=== PATIENT | female | born 1990 | race Caucasian/White ===

== ENCOUNTER 2021-01-23 12:53 | Outpatient (RCR) | payer BC, SELFPAY | END 2021-02-27 23:59 | LOC: IMMUN 12:53 | PROVIDERS: Visit Provider Family Medicine | DX: Z23 Encounter for immunization (principal) | CPT/HCPCS: 0001A; 91300 ==

== ENCOUNTER 2023-05-19 12:50 | Inpatient (IN) | payer BC, SELFPAY ==
[2023-05-19] VITALS (18 sets, daily range): BP systolic 132–157; BP diastolic 62–86; PULSE 59–68; TEMP 35.9–36.8; O2SAT 94–100; BMI 25.4
[2023-05-19] MEDS: 0.9% Saline Lock 10 ML Syringe IV (13:55)
[2023-05-19 14:14] LABS: Absolute Lymphocyte Count 1.45 X10^3/uL (0.83-4.51); Absolute Neutrophil Count 5.1 X10^3/uL (2.0-7.7); Basophil# 0.02 X10^3/uL; Basophil% 0.3 % (0-1); Eosinophil# 0.04 X10^3/uL; Eosinophils% 0.6 % (0-5); Hematocrit 31.6 % (37-47); Lymphocyte # 1.45 X10^3/ul (0.83-4.51); Lymphocyte % 20.5 % (19-41); Mean Corp Hgb Conc 34.8 g/dL (32-36); Mean Corpuscular Hgb 32.7 pg (27.0-32.0); Mean Platelet Vol. 12.6 fl (6.2-12.0); Monocyte# 0.41 X10^3/uL; Monocyte% 5.8 % (0-10); NRBC Flagged by Analyzer 0 % (0-5); Neutrophil # 5.09 X10^3/uL (2.7-7.7); Neutrophil % 72.1 % (47-70); Platelet Count 109 K/mm3 (150-450); RBC Distribution Width CV 11.9 % (11.6-14.6); RBC Distribution Width SD 40.4 fl (35.1-43.9); Red Blood Count 3.36 M/mm3 (4.2-5.4); White Blood Count 7.1 K/mm3 (4.4-11.0)
[2023-05-19] MEDS: miSOPROStol 25 MCG TABLET VAGINAL ×2 (14:15→18:39)
[2023-05-19 14:45] LABS: AST(SGOT) 27 U/L (15-37); Alanine Aminotransfer ALT/SGPT 36 U/L (13-56); Creatinine, Serum 0.79 mg/dL (0.55-1.02); EST Glomerular Filtration Rate 90 mL/min (>60); Est Glom Filt Rate - Afr Amer 109 mL/min (>60); Estimated Creatinine Clearance 92.85 ml/min; Uric Acid 4.9 mg/dL (2.6-6.0)
[2023-05-19 14:47] LABS: Protein, Urine (Random) 13.9 mg/dL (<11.9); Protein:Creat Ratio 120 mg/g CRE (0-200)
[2023-05-19 15:04] LABS: Syphilis Antibodies Non-reactive
--- NOTE | 2023-05-19 16:53 | PCM.HP.OB ---
HPI - General General Date of Admission: 05/19/23 HPI Narrative DERECK GARCIA, is a 33 F at 37 weeks who was sent over from office for induction of labor for elevated blood pressure. Maternal Data Information ROSEANNE Calculator Estimated Delivery Date Method Current WG Current Estimate 06/09/23 Manual 37w 0d PFSH PFSH Medical History (Updated 05/19/23 @ 16:57 by Macarena Galvan CNM) Gestational HTN Pre-eclampsia Home Medications desogestrel 0.15 mg-ethinyl estradiol 0.03 mg tablet (Apri) 1 tab PO DAILY 11/16/21 [History Last Taken Unknown] Allergy/AdvReac Type Severity Reaction Status Date / Time No Known Allergies Allergy Verified 05/19/23 13:49 Surgical History no surgical history Social History (Updated 11/16/21 @ 17:52 by Karen Linda) Smoking Status: Never smoker alcohol intake: current alcohol intake frequency: a few times a month History Elective abortions Hx Para 0 Spontaneous abortions Hx # Term Pregnancies Ectopic pregnancies Hx # Pregnancies Multiple births # of living children ROS Eyes Eyes: Denies blurry vision, change in vision or spots in vision ENT HEENT: Denies dizziness or headache(s) Cardiovascular Cardiovascular: Denies abdominal pain, chest pain or dyspnea Respiratory/Chest Respiratory/Chest: Denies cough, dyspnea, shortness of breath at rest or shortness of breath with exertion Gastrointestinal Gastrointestinal: Denies abdominal pain, diarrhea or vomiting Genitourinary Genitourinary: Denies change in urinary stream, difficulty urinating or dysuria Musculoskeletal Musculoskeletal: Reports none Integumentary Integumentary: Denies rash Neurologic Neurologic: Denies dizziness, headache(s), memory loss or weakness Psychiatric Psychiatric: Reports none Vital Signs Vital Signs Vital Signs: 05/19/23 13:19 05/19/23 13:19 05/19/23 13:19 Temperature 97.3 F L Temperature Source Pulse Rate 63 Blood Pressure 138/85 H BP Systolic 138 BP Diastolic 85 Pulse Ox 05/19/23 13:34 05/19/23 13:34 05/19/23 13:45 Temperature Temperature Source Pulse Rate 61 Blood Pressure 145/80 H 139/86 H BP Systolic 145 139 BP Diastolic 80 86 Pulse Ox 05/19/23 13:45 05/19/23 14:00 05/19/23 14:00 Temperature Temperature Source Pulse Rate 65 63 Blood Pressure 139/82 H BP Systolic 139 BP Diastolic 82 Pulse Ox 05/19/23 14:05 05/19/23 14:05 05/19/23 13:19 Temperature Temperature Source Pulse Rate 63 Blood Pressure 139/80 H BP Systolic 139 BP Diastolic 80 Pulse Ox 100 05/19/23 13:19 05/19/23 15:02 05/19/23 15:03 Temperature Temperature Source Pulse Rate 60 Blood Pressure 134/70 H BP Systolic 134 BP Diastolic 70 Pulse Ox 100 05/19/23 15:03 05/19/23 15:02 05/19/23 15:02 Temperature 98.2 F Temperature Source Temporal Pulse Rate Blood Pressure BP Systolic BP Diastolic Pulse Ox 94 05/19/23 15:02 05/19/23 16:39 05/19/23 16:39 Temperature Temperature Source Pulse Rate 62 Blood Pressure 153/83 H BP Systolic 153 BP Diastolic 83 Pulse Ox 97 Weight Weight: 153 lb 0.013 oz Body Mass Index (BMI) 25.4 Physical Exam Const alert, oriented x3 and no apparent distress General Appearance: cooperative Orientation / Consciousness: awake Exam Limitations: no limitations HEENT normocephalic Head and Scalp: normal to inspection Eyes General Eye: normal appearance of both eyes Neck full ROM and no lymphadenopathy Lymph Lymphatic: no lymphadenopathy noted Chest inspection of chest normal Resp normal respiratory effort, normal air movement and clear to auscultation bilaterally Effort and Inspection: able to speak in complete sentences and symmetric chest movement Cardio regular rate and regular rhythm GI normal to inspection, nondistended, normoactive bowel sounds Manual OB Exam: presentation cephalic Back/Spine normal ROM Extremity full ROM and no calf tenderness Skin no rashes or lesions noted General Skin Exam: no breakdown Neuro oriented x3 and CN's II-XII intact bilaterally Psych mental status grossly normal and thought process normal Labs Labs Labs: Blood Type O POSITIVE Antibody Screen NEGATIVE Hct 31.6 % (37-47) L Hgb 11.0 g/dL (12.0-15.0) L Syphilis Total Ab Non-reactive GBS negative Assessment & Plan (1) 37 weeks gestation of : (2) Elevated blood pressure affecting , antepartum: (3) Encounter for induction of labor: PLAN: Plan Admit to labor and delivery Activate HTN protocol BP 153/83 Start IV and run fluids per orders PIH labs- normal CE /-3 Cytotec 25 mcg PO x 1 and will reevaluate cervix for possible rose bulb placement GBS negative Dr. Lewis aware of induction and is collaborating physician
[2023-05-19] MEDS: 0.9% Normal Saline Single 100 ML IV.SOLN. INTRA-UTER (19:56)
--- NOTE | 2023-05-19 20:02 | PCM.PN.BLA ---
Progress Note Patient seen at bedside. Feeling contractions more but still rating pain 2/10. Ambulating in room. Coping well at this time. Assessment & Plan Assessment/Plan (1) Encounter for induction of labor: (2) Elevated blood pressure affecting , antepartum: (3) 37 weeks gestation of : PLAN: Plan Cytotec 25 mcg PV x 2 doses CE- 1.5/60/-2 Rose bulb placed without difficulty AROM with placement for clear fluid Cat. 1 tracing, NST reactive Continue present management Start Pitocin IV after rose bulb out
[2023-05-19] MEDS: LACTATED RINGERS 500 ML 999 ML IV (22:53)
[2023-05-19] MEDS: Lactated Ringers 1,000 ML 50 ML IV (22:53)
[2023-05-19] MEDS: Oxytocin 15 Units/NS 250ml 15 UNITS/250 ML IV.SOLN 2 UNITS IV (23:30)
[2023-05-20] VITALS (48 sets, daily range): BP systolic 107–207; BP diastolic 52–120; PULSE 62–91; RESP 16; TEMP 36.2–37.7; O2SAT 79–100
[2023-05-20] MEDS: Ondansetron 4 MG/2 ML Vial IV (04:10)
[2023-05-20] MEDS: LACTATED RINGERS 500 ML 999 ML IV (04:40)
[2023-05-20] MEDS: fentaNYL-bupivacaine (epidural) 100 ML BAG EPIDURAL (05:32)
[2023-05-20] MEDS: DiphenhydrAMINE 50 MG/ML Syringe IV (05:41)
[2023-05-20] MEDS: 0.9% Saline Lock 10 ML Syringe IV (05:41)
[2023-05-20] MEDS: Oxytocin 15 Units/NS 250ml 15 UNITS/250 ML IV.SOLN 334 UNITS IV (09:05)
--- NOTE | 2023-05-20 09:49 | EX.PCM.OBRPT ---
Assessment & Plan (1) (spontaneous vaginal delivery): (2) Laceration, obstetrical, second degree: (3) Care and examination of lactating mother: Maternal Data Information ROSEANNE Calculator Estimated Delivery Date Method Current WG Current Estimate 06/09/23 Manual 37w 1d Vaginal Delivery Maternal Presentation Maternal Presentation: Medically Indicated Induction Maternal Presentation: at 37.0 weeks gestation for induction of labor for gestational hypertension. Type of Induction: Pitocin, Palm Bulb and Amniotomy Medical Reason for Induction: Gestational Hypertension Operative Information Date of Procedure: 05/20/23 Pre-Operative Diagnosis: Term gestation, induction of labor, Gestational hypertension Post-Operative Diagnosis: , Live male Surgery / Procedure Performed: Spontaneous Vaginal Delivery Type of Anesthesia: Epidural Drain: Palm to straight drain Estimated Blood Loss: 300 Time of Delivery: 08:55 Findings Description of Procedure: Patient became completely dilated and +1 station. Provided bedside support during pushing. With maternal effort, head delivered. Double nuchal cord reduced during delivery of anterior shoulders and remainder of infant. Vigorous male placed on maternal abdomen and was attended to by nursing staff. Pitocin started for active management of the third stage of labor. Cord clamped and cut after delay by FOB. placed skin to skin with patient. Placenta delivered spontaneously and intact. Uterus initially boggy but firmed with massage. Second degree laceration repaired in usual fashion using 3-0 Vicryl Rapid. Vaginal floor continued to seep. Lacerations approximated. Vaginal packing placed. Hemostasis obtained. Palm catheter left in place. EBL 300 cc. APGARS 8/9.Patient infant and bonding well at this time. Dr. Fenton notified of delivery and vaginal packing placed that will need to be removed. Medical student Sandy Jackson present and assisted with delivery. Presentation: Vertex Amniotic Membrane Rupture Type: Artificial Time of Membrane Rupture: 1955 Amniotic Fluid Description: Clear Placental Delivery Description: Spontaneous Placenta Disposition: [facility] Cord Vessel Description: 3 Vessels Cord Entanglement: Around neck x 2, loose and - (Around body x 1 loose) Nuchal Cord Compression: Without compression Infant A Gender: Male (1 minute): 8 (5 minute): 9 Delayed Cord Clamping: Yes Post Vaginal Delivery Medications Given After Delivery: IV Pitocin Episiotomy Description: None Laceration: Vaginal Extension/lac and 2nd degree Complication Complications: None
[2023-05-20] MEDS: Ibuprofen 600 MG Tablet PO ×2 (15:03→21:11)
[2023-05-20] MEDS: Acetaminophen 500 MG Tablet 1000 MG PO ×2 (17:08→23:40)
[2023-05-20] MEDS: Benzocaine/Lanolin/Aloe Vera 1 SPRAY EACH TOPICAL (17:09)
[2023-05-21] MEDS: Ibuprofen 600 MG Tablet PO ×2 (04:47→13:46)
[2023-05-21 04:49] VITALS: BP 127/69; PULSE 60; RESP 16; TEMP 36.8
[2023-05-21 05:14] LABS: Hematocrit 30.9 % (37-47); Hemoglobin 10.5 g/dL (12.0-15.0); Mean Corpuscular Hgb 32.1 pg (27.0-32.0); Mean Corpuscular Volume 94.5 fL (81-99); Mean Platelet Vol. 12.4 fl (6.2-12.0); Platelet Count 110 K/mm3 (150-450); RBC Distribution Width CV 11.9 % (11.6-14.6); RBC Distribution Width SD 41.1 fl (35.1-43.9); Red Blood Count 3.27 M/mm3 (4.2-5.4); White Blood Count 16.2 K/mm3 (4.4-11.0)
[2023-05-21 08:50] VITALS: BP 135/70; PULSE 65; RESP 18; TEMP 36.8; O2SAT 96
[2023-05-21] MEDS: Acetaminophen 500 MG Tablet 1000 MG PO (09:03)
--- NOTE | 2023-05-21 09:33 | PCM.PN.BLA ---
Progress Note Pain well controlled. Average lochia. Passing flatus but no bowel movement. Tolerating regular diet. Urinating without difficulty. Physical Exam Const alert and no apparent distress Narrative: Fundus firm, below umbilicus. Assessment & Plan Assessment/Plan (1) (spontaneous vaginal delivery): PLAN: day #1 status post vaginal delivery. Blood pressures well controlled. is breast-feeding and doing well. Okay to discharge home and follow-up in the office early next week. Call for signs or symptoms of severe preeclampsia. Blood pressures have been normal after delivery. No evidence of preeclampsia
--- NOTE | 2023-05-21 09:35 | PCM.DC.SUM ---
Providers Date of Admission: 05/19/23 Date of Discharge: 05/21/23 Reason For Visit: VAGINAL DELIVERY Diagnosis Discharge Diagnosis (1) (spontaneous vaginal delivery): Status: Acute Code(s): O80 - Encounter for full-term uncomplicated delivery Plan: day #1 status post vaginal delivery. Blood pressures well controlled. is breast-feeding and doing well. Okay to discharge home and follow-up in the office early next week. Call for signs or symptoms of severe preeclampsia. Blood pressures have been normal after delivery. No evidence of preeclampsia Medications at Discharge Home Medications desogestrel 0.15 mg-ethinyl estradiol 0.03 mg tablet (Apri) 1 tab PO DAILY 11/16/21 Hospital Course Operations None Summary of Care Provided Minutes Spent on Discharge: 16 Hospital Course: 33-year-old nulliparous female admitted for induction of labor on 05/19/2023. She was admitted for induction of labor due to gestational hypertension. She had a spontaneous vaginal delivery on 05/20/2023. She had some vaginal lacerations and had some vaginal packing placed after they were repaired. It was removed 05/20/2020 3 in the evening. Her bleeding was normal afterwards. She was discharged home with routine instructions and prescriptions. Is to follow-up in the office early next week or as needed Weight / BMI Weight Weight: 69.4 kg Body Mass Index (BMI) 25.4 ABG / Lab / Microbiology Data 05/21/23 04:45 05/19/23 13:55 Laboratory: Laboratory Results - last 24 hr 05/21/23 04:45: WBC 16.2 H, RBC 3.27 L, Hgb 10.5 L, Hct 30.9 L, MCV 94.5, MCH 32.1 H, MCHC 34.0, RDW Std Deviation 41.1, RDW Coeff of Zeeshan 11.9, Plt Count 110 L, MPV 12.4 H D/C Instructions Discharge Diet: No restrictions May resume sexual activity in: 6 weeks Call your doctor if your incision/area has: Continuous Slow Oozing, Sudden Increased Bleeding, Foul Smelling Discharge and Swelling at the incision site Call your doctor if you observe: Fever of 101 or Higher and Inability to urinate Please Follow Up With: Jasmeet Lewis MD When: Follow up with our office in 1-2 and 6 weeks or as needed. [phone]. Send a [employer] message for non urgent issues and to our nurses to contact you to schedule a follow up next week Meaningful Use Info Meaningful Use Diagnoses (Choose all that apply): None applicable Discharge Plan Admission Admit Date/Time: 05/19/23 12:50 Primary Reason for Your Visit: Vaginal delivery Attending Provider: Macarena Galvan Discharge Orders/Prescriptions Prescriptions: No Action desogestrel-ethinyl estradiol [Apri] 0.15-0.03 mg tablet 1 tab PO DAILY Disposition Disposition (needs filled in before D/C Order can be placed): Home, Self Care
[2023-05-21] MEDS: Senna/Docusate Sodium 1 Tablet PO (11:28)
[2023-05-21 14:00] VITALS: BP 128/73; PULSE 77; RESP 18; TEMP 36.8; O2SAT 98
== END 2023-05-21 16:00 | disposition home or self-care (01) | DRG 807 ==
PROVIDERS: Obstetrics & Gynecology; Admitting Provider Advanced Practice Midwife; Referring Provider Advanced Practice Midwife; Visit Provider Advanced Practice Midwife
DX: O13.4 Gestational [pregnancy-induced] hypertension without significant proteinuria, complicating childbirth (principal); Z37.0 Single live birth; O71.4 Obstetric high vaginal laceration alone; Z3A.37 37 weeks gestation of pregnancy
CPT/HCPCS: 59025; 59050; 82565; 82570; 84156; 84450; 84460; 84550; 85025; 85027; 86780; 86850; 86900; 86901; 99221; J7120; A4216; G0378; J2405

== ENCOUNTER 2023-05-29 15:40 | Observation (INO) | payer BC, SELFPAY ==
[2023-05-29] VITALS (8 sets, daily range): BP systolic 102–140; BP diastolic 46–93; PULSE 68–111; RESP 12–18; TEMP 36.8–37.8; O2SAT 95–99; BMI 22.8
--- NOTE | 2023-05-29 | POC_PTH ---
PATIENT: DERECK GARCIA LOC: [facility] U#:[id number] AGE/SX: 33/F ROOM: WP009 RE05/29/[address]: Dr. Veena Lantigua DO : 1990 BED: 1 DIS: 05/30/2023 SPEC #: [id number] RECD: 05/30/23 07:19 STATUS: EMILEE PATRICIA #: [id number] NICO: 05/29/23 00:[address]: Veena Lantigua DEPT: SURGICAL PATHOLOGY RECD BY: Obed Medina ENTERED: 05/30/23 09:32 SP TYPE: PROD CONC OTHR DR: No Primary Care Phys Tissues: Product of conception, NOS Procedures: Surgery Specimen Level IV HEADER OPERATION: Suction dilation and curettage PRE-OP DIAGNOSIS: Retained products of conception; acute blood loss anemia; state TISSUE SUBMITTED: Retained products of conception MICROSCOPIC DIAGNOSIS Endometrium, curettage: Autolyzed decidual-type tissue, acute and chronic inflammation and fibrinopurulent material. See comment. AM:sejal 05/31/2023 COMMENT The specimen may represent products of conception. Clinical correlation is suggested. MICROSCOPIC DESCRIPTION Slides are reviewed. GROSS DESCRIPTION Received in fixative is one container labeled with the patient's name and designated retained products of conception. The specimen consists of multiple irregular fragments of pink soft tissue mixed with blood clot that in aggregate measure 7.0 x 5.5 x 1.0 cm. No tissue or placental tissue is identified. Project Management Intern tissue is submitted in three cassettes. / SJ:sejal 05/30/2023 TC:5 CPT: 49888
--- NOTE | 2023-05-29 16:05 | US_ITS ---
STUDY: ULTRASOUND OF THE FEMALE PELVIS - COMPLETE REASON FOR EXAM: Female, 33 years old. possible retained products LMP: TECHNIQUE: Transabdominal TECHNICAL QUALITY: Adequate. COMPARISON: None. FINDINGS: The uterus is anteverted and is in a midline position. The uterus measures 16.7 x 8.6 x 7.3 cm. Normal uterine cervix. The endometrium measures 16 mm in thickness, and is fluid distended. Echogenic material within the endometrial cavity as well. There is no demonstrated myometrial mass. I.U.D. - The patient does not have an I.U.D. The right ovary is visualized. The right ovary measures 3.3 x 4.1 x 1.6 cm. There is no right ovarian cyst or ovarian mass. There is no visualized right adnexal mass or complex lesion. There is normal arterial and normal venous vascularity. The left ovary is visualized. The left ovary measures 3.2 x 2.3 x 1.8 cm. There is no left ovarian cyst or ovarian mass. There is no visualized left adnexal mass or complex lesion. There is normal arterial and normal venous vascularity. There is no fluid in the cul-de-sac. The pre void volume of the bladder was ml. The post void volume of the bladder was ml. Polycystic ovary disease: No. US/Pelvic (Non ) IMPRESSION: Suspect retained products of conception with an enlarged uterus with endometrial fluid and echogenic material. Electronically Signed: Laith Mendez MD at 18:52 EDT ,
--- NOTE | 2023-05-29 16:05 | ED.VIS.FEGU ---
HPI HPI - Female History of Present Illness Chief Complaint: Vag Bleeding Informant: patient and spouse/S.O. Narrative Narrative: 33-year-old female presenting to the emergency room with a chief complaint of vaginal bleeding. Patient delivered vaginally 9 days ago. . Patient states that she had been doing well baby has been doing well. Today she started having a recurrence of her vaginal bleeding and later developed large clots. She has felt some lightheadedness and after the last large clot decided to come to emergency. Earlier in the day she had discussed with on-call CHANNEL WORKER. She was seen Dr. Fenton for obstetrics. She denies fever. She denies any significant cramping or pain. Patient does note that she is breast-feeding. Patient states that she was induced at 37 weeks for gestational hypertension. At her last appointment her blood pressures have normalized. [facility] Medical History Elevated blood pressure affecting , antepartum Gestational HTN Laceration, obstetrical, second degree Pre-eclampsia (spontaneous vaginal delivery) Home Medications desogestrel 0.15 mg-ethinyl estradiol 0.03 mg tablet (Apri) 1 tab PO DAILY 11/16/21 [History Last Taken Unknown] Allergy/AdvReac Type Severity Reaction Status Date / Time No Known Allergies Allergy Verified 05/29/23 15:41 Social History Smoking Status: Never smoker alcohol intake: current alcohol intake frequency: a few times a month ROS ROS ED Constitutional Constitutional ED: Denies chills, fever(s) or weight loss Eyes Eyes: Denies change in vision or diplopia ENT ENT ED: Denies ear pain, rhinorrhea or sore throat Cardiovascular Cardiovascular: Denies chest pain, orthopnea, palpitations or racing heartbeat Respiratory/Chest Respiratory/Chest: Denies cough, dyspnea or orthopnea Gastrointestinal Gastrointestinal: Denies abdominal pain, diarrhea, nausea or vomiting Genitourinary Genitourinary ED: Reports other Details: See history of present illness ; Denies dysuria, hematuria or urinary frequency Musculoskeletal Musculoskeletal: Denies arthralgias or myalgias Integumentary Denies abscess or rash Neurologic Neurologic: Denies headache(s) or weakness Psychiatric Psychiatric: Denies anxiety, depression, suicidal ideation or suicidal thoughts Endocrine Endocrinology: Denies polydipsia, polyphagia or polyuria Allergic/Immunologic Allergic/Immunologic ED: Denies mouth swelling, tongue swelling or urticaria EXAM Physical Exam Const Vital Signs: 05/29/23 15:41 Temperature 98.3 F Temperature Source Temporal Pulse Rate 111 H Respiratory Rate 18 Blood Pressure 140/93 H Blood Pressure Mean 108 Pulse Ox 98 Oxygen Delivery Method Room Air Positive well nourished and well developed General Appearance ED: well developed HEENT Reports normocephalic, head/scalp atraumatic and moist mucous membranes Eyes PERRL and EOMs intact bilaterally Neck no lymphadenopathy, supple and no JVD Resp normal respiratory effort and clear to auscultation bilaterally Cardio regular rate, regular rhythm and no murmurs GI normal to inspection, nondistended, normoactive bowel sounds and non-tender Palpation: soft Back/Spine no CVA tenderness and normal ROM Extremity normal to inspection General Extremety ED: Negative for edema General Extremity: Negative for edema Neuro oriented x3 and CN's II-XII intact bilaterally Sensorium / Orientation: alert Motor Exam: strength 5/5 throughout Psych mental status grossly normal Mood & Affect: Negative for depressed or tearful Skin no rashes or lesions noted and no wounds MDM MDM MDM Narrative Medical decision making narrative: The patient's initial hemoglobin 12.3. Quantitative hCG is 24. The patient underwent pelvic ultrasound which is concerning for retained products of conception. She has continued to have bleeding and saturated several pads. The patient had a syncopal episode which she recovered uneventfully from. EKG demonstrates a normal sinus rhythm with a ventricular rate of 73. Second hemoglobin is 10.3 down [address] Lantigua from gynecology who will be down to evaluate the patient for potential D&C. Patient has been updated. Lab Data Labs: Laboratory Results - last 24 hr 05/29/23 05/29/23 16:16 19:00 WBC 9.7 RBC 3.84 L Hgb 12.3 10.3 L Hct 35.6 L 32.9 L MCV 92.7 MCH 32.0 MCHC 34.6 RDW Std Deviation 39.7 RDW Coeff of Zeeshan 11.7 Plt Count 301 MPV 10.5 Immature Gran % (Auto) 1.300 H Neut % (Auto) 66.8 Lymph % (Auto) 24.4 [place] % (Auto) 5.9 Eos % (Auto) 1.2 Baso % (Auto) 0.4 Absolute Neuts (auto) 6.5 Absolute Lymphs (auto) 2.37 Nucleated RBC % 0 HCG, Quant 24 H Radiography Diagnostic Testing: Clinical Impression(s) from Imaging Studies Pelvis Ultrasound 05/29/23 16:05 IMPRESSION: Suspect retained products of conception with an enlarged uterus with endometrial fluid and echogenic material. Electronically Signed: Laith Mendez MD at 18:52 EDT , EKG Initial EKG: Attestation: I personally reviewed and interpreted this EKG as follows: Comments: Normal sinus rhythm with a ventricular rate of 73 bpm. No concerning features of ACS noted. No preexcitation noted Discharge Plan Dx/Rx/DC Orders Clinical Impression: Retained products of conception, Syncope, Acute blood loss anemia Disposition Disposition: Acute Care [facility]
[2023-05-29 16:25] LABS: Absolute Lymphocyte Count 2.37 X10^3/uL (0.83-4.51); Absolute Neutrophil Count 6.5 X10^3/uL (2.0-7.7); Basophil# 0.04 X10^3/uL; Basophil% 0.4 % (0-1); Eosinophil# 0.12 X10^3/uL; Eosinophils% 1.2 % (0-5); Hematocrit 35.6 % (37-47); Hemoglobin 12.3 g/dL (12.0-15.0); Lymphocyte # 2.37 X10^3/ul (0.83-4.51); Lymphocyte % 24.4 % (19-41); Mean Corp Hgb Conc 34.6 g/dL (32-36); Mean Corpuscular Volume 92.7 fL (81-99); Mean Platelet Vol. 10.5 fl (6.2-12.0); Monocyte# 0.57 X10^3/uL; Monocyte% 5.9 % (0-10); NRBC Flagged by Analyzer 0 % (0-5); Neutrophil # 6.47 X10^3/uL (2.7-7.7); Neutrophil % 66.8 % (47-70); Platelet Count 301 K/mm3 (150-450); RBC Distribution Width CV 11.7 % (11.6-14.6); RBC Distribution Width SD 39.7 fl (35.1-43.9); Red Blood Count 3.84 M/mm3 (4.2-5.4); White Blood Count 9.7 K/mm3 (4.4-11.0)
[2023-05-29 17:21] LABS: hCG Titer Quant., Serum 24 mIU/mL (1-3)
[2023-05-29 19:09] LABS: Hematocrit 32.9 % (37-47); Hemoglobin 10.3 g/dL (12.0-15.0)
--- NOTE | 2023-05-29 20:00 | HP.PCM.OB_ITS ---
HPI - General General Date of Admission: 05/29/23 Date of Service: 05/29/23 Chief Complaint: vaginal bleeding HPI Narrative DERECK GARCIA, is a 33 F who is 9 days from a vaginal delivery. She presented to the ER with heavy bleeding. She was experiencing some lightheadedness and dizziness at home, and this has resolved. She states she was passing large blood clots at home and having bleeding similar to a heavy period. She offers no other complaints at this time. She is . Maternal Data Information ROSEANNE Calculator Estimated Delivery Date Method Current WG Current Estimate 06/09/23 Manual 38w 3d PFSH [facility] Medical History Elevated blood pressure affecting , antepartum Gestational HTN Laceration, obstetrical, second degree Pre-eclampsia (spontaneous vaginal delivery) Home Medications desogestrel 0.15 mg-ethinyl estradiol 0.03 mg tablet (Apri) 1 tab PO DAILY 11/16/21 [History Last Taken Unknown] Allergy/AdvReac Type Severity Reaction Status Date / Time No Known Allergies Allergy Verified 05/29/23 15:41 Social History Smoking Status: Never smoker alcohol intake: current alcohol intake frequency: a few times a month History 1 Elective abortions Hx Para 1 Spontaneous abortions Hx # Term Pregnancies Ectopic pregnancies Hx # Pregnancies Multiple births # of living children 1 Vital Signs Vital Signs Vital Signs: 05/29/23 15:41 05/29/23 19:26 Temperature 98.3 F Temperature Source Temporal Pulse Rate 111 H 82 Respiratory Rate 18 13 Blood Pressure 140/93 H 123/80 H Blood Pressure Mean 108 94 Pulse Ox 98 97 Oxygen Delivery Method Room Air Room Air Weight Weight: 137 lb 1.6 oz Body Mass Index (BMI) 22.8 Physical Exam Const alert and no apparent distress General Appearance: comfortable HEENT normocephalic Resp normal respiratory effort GI non-distended Labs Labs Labs: Blood Type O POSITIVE Antibody Screen NEGATIVE Hct 32.9 % (37-47) L Hgb 10.3 g/dL (12.0-15.0) L Syphilis Total Ab Non-reactive Rhogam given: No Assessment & Plan (1) Retained products of conception: PLAN: HD stable in the ER but with acute blood loss anemia. Pelvic ultrasound shows retained POC's. Discussed r/b/a to a suction D&C with the patient and consent was signed. Will give 1 dose Ancef pre op. Discussed with patient observation overnight given syncopal episode and anemia. Will recheck CBC in AM. (2) Acute blood loss anemia: (3) Syncope: (4) state:
[2023-05-29] MEDS: Cefazolin 2 GM in 0.9% Normal Saline (100mL Bag) 100 ML IV (20:25)
[2023-05-29] MEDS: miSOPROStol 200 MCG Tablet (21:20)
--- NOTE | 2023-05-29 21:30 | PCM.OPRPT ---
Problems Associated Problem List Diagnoses (1) state: (2) Acute blood loss anemia: (3) Retained products of conception: Report of Operation Date of Procedure: 05/29/23 Pre-Operative Diagnosis: Retained products of conception, acute blood loss anemia, state Post-Operative Diagnosis: As above Surgery/Procedure Performed:: Suction D&C under ultrasound guidance Description of Surgical Findings:: Uterus palpated to be about 11 week in size. Products of conception noted to be within the uterus Surgeon: Veena Lantigua Type of Anesthesia: MAC Special Medications: None Specimen's removed: Products of conception Drains: None Estimated Blood Loss (mL): 100 Fluids Replaced: 400 mL Description of Procedure: The patient was taken to the operating room where MAC anesthesia was induced. She was prepped and draped in the dorsal lithotomy position using yellowfin stirrups. The uterus was palpated to be about 11 weeks in size. A weighted speculum was placed in the vagina. The anterior lip of the cervix was grasped with a single-tooth tenaculum. The cervix was already dilated. Using a size 11 suction cannula the uterus was evacuated of products of conception under ultrasound guidance. Once tissue was no longer noted to be present, a sharp curettage was performed along all 4 [place] of the uterus with a good uterine cry. An ultrasound was performed at the end of the case confirming no further retained products of conception. Cytotec 800 mcg was placed in the rectum. Bleeding was hemostatic. All instruments were removed from the vagina. A vaginal sweep was performed. Patient was taken to the recovery room in stable condition. Grafts/Implants Used: None Complications None Admit VTE Documentation VTE Present on Admission: No VTE Mechan Device Prophylaxis: SCD's
[2023-05-29] MEDS: Ibuprofen 600 MG Tablet PO (22:45)
[2023-05-29] MEDS: Acetaminophen 325 MG Tablet 650 MG PO (22:45)
[2023-05-30 01:42] VITALS: BP 141/82; PULSE 79; RESP 16; TEMP 36.7; O2SAT 98
[2023-05-30 03:00] VITALS: BP 119/52; PULSE 59; RESP 16; TEMP 36.4; O2SAT 97
[2023-05-30 05:32] LABS: Hematocrit 26.1 % (37-47); Hemoglobin 8.8 g/dL (12.0-15.0); Mean Corp Hgb Conc 33.7 g/dL (32-36); Mean Corpuscular Hgb 32.5 pg (27.0-32.0); Mean Corpuscular Volume 96.3 fL (81-99); Platelet Count 220 K/mm3 (150-450); RBC Distribution Width CV 11.9 % (11.6-14.6); RBC Distribution Width SD 41.1 fl (35.1-43.9); Red Blood Count 2.71 M/mm3 (4.2-5.4); White Blood Count 8.2 K/mm3 (4.4-11.0)
[2023-05-30] MEDS: Ibuprofen 600 MG Tablet PO (08:34)
[2023-05-30] MEDS: Acetaminophen 325 MG Tablet 650 MG PO (08:34)
[2023-05-30 08:39] VITALS: BP 109/60; PULSE 63; RESP 16; TEMP 36.8
--- NOTE | 2023-05-30 08:43 | PCM.PN.BLA ---
Progress Note Pain well controlled, average lochia. No fever or chills. No SOB/lightheadedness Physical Exam Const alert and no apparent distress Narrative: Fundus firm, below umbilicus. Assessment & Plan Assessment/Plan (1) state: PLAN: Postoperative day 1 status post suction D&C for retained products of conception. Acute blood loss anemia. Patient is tolerating this well. Discharge home. Recommend iron supplementation and continue vitamins and push fluids. Patient is comfortable with this plan. (2) Acute blood loss anemia:
--- NOTE | 2023-05-30 08:44 | PCM.DC ---
Discharge Instructions Diet Discharge Diet: No restrictions Activity May resume sexual activity in: 6 weeks Dressing / Incision Call your doctor if your incision/area has: Continuous Slow Oozing, Sudden Increased Bleeding, Foul Smelling Discharge and Swelling at the incision site Call your doctor if you observe: Fever of 101 or Higher and Inability to urinate Follow Up Care Please Follow Up With: Veena Lantigua DO When: Follow up with our office as needed or as scheduled. Send a [facility] message as needed. Call [phone] as needed Test Results: Test results from this visit will be discussed in further detail at your follow-up appointment, if applicable. Discharge Plan Admission Admit Date/Time: 05/29/23 21:23 Primary Reason for Your Visit: retained placenta with D&C Attending Provider: Veena Lantigua Primary Care Provider: Care PhysicianYessica Primary Discharge Orders/Prescriptions Prescriptions: Continued PNV cmb#[id number]-ferrous fumarate-FA [] 28 mg iron- 800 mcg tablet 1 tab PO DAILY Discontinued desogestrel-ethinyl estradiol [Apri] 0.15-0.03 mg tablet 1 tab PO DAILY Referrals / Follow Up: Care Physician,No Primary [Primary Care Provider] - Disposition Disposition (needs filled in before D/C Order can be placed): Home, Self Care
--- NOTE | 2023-05-30 10:59 | NURSING ---
discharge instructions reviewed with patient and patient verbalized understanding. Cuddles tag 11 removed from baby upon discharge
== END 2023-05-30 10:50 | disposition home or self-care (01) ==
LOC: ED 16:33 → SDC 19:11 → AC 19:12 → WP 20:47 → SDC 21:45 → WP 05-30 08:46
PROVIDERS: Admitting Provider Obstetrics & Gynecology; Emergency Provider Emergency Medicine; Referring Provider Obstetrics & Gynecology; Visit Provider Obstetrics & Gynecology
PROC: (CPT 59160; principal; 2023-05-29 20:30)
DX: O72.2 Delayed and secondary postpartum hemorrhage (principal); O90.81 Anemia of the puerperium; D62 Acute posthemorrhagic anemia
CPT/HCPCS: 59160; 76856; 84702; 85014; 85018; 85025; 85027; 88305; 93005; 99221; 99285; J7030; A4216; G0378; J2405